=== PATIENT | male | born 1945 | race Caucasian/White ===

== ENCOUNTER → 2017-03-04 | Outpatient (CLI) | payer OTHER ==
--- NOTE | 2017-03-04 15:34 | PCVCIMAG ---
APPROVED REPORT Study performed: 03/04/2017 14:09:44 EXAM: Comprehensive 2D, Doppler, and color-flow Echocardiogram Patient Location: Echo lab Room #: 3Status: routine BSA: 2.32 HR: 67 bpmBP: 190/86 mmHg Rhythm: NSR Other Information Study Quality: Good Risk Factors: Cardiac Risk Factors: HTN, DM Indications Diabetes Atrial Fibrillation Hypertension/HDD 2D Dimensions LVEF(%): 76.34 (>50%) IVSd: 12.16 (7-11mm)LVOT Diam: 26.90 (18-24mm) LVDd: 56.75 mm PWd: 12.00 (7-11mm)Ascending Ao: 38.63 (22-36mm) LVDs: 30.86 (25-40mm) Left Atrium: 50.67 (27-40mm) Aortic Root: 34.76 mm LV Single Plane 4CH: 53.84 % LV Single Plane 2CH: 71.36 %Gonzales's LVEF: 62.60 % Biplane EF: 64.3 % Volumes Left Atrial Volume (Systole) Single Plane 4CH: 87.58 mLSingle Plane 2CH: 92.92 mL Biplane LA Volume: 106.00 mLLA ESV Index: 46.00 mL/m2 Aortic Valve AoV Peak Rod.: 1.60 m/s AO Peak Gr.: 10.20 mmHgLVOT Max P.43 mmHg LVOT Max V: 1.05 m/s COLLINS Vmax: 3.74 cm2 Mitral Valve E/A Ratio: 1.0 MV Decel. Time: 153.81 ms MV E Max Rod.: 0.70 m/s MV A Rod.: 0.71 m/s MV PHT: 44.60 ms IVRT: 83.04 ms TDI E/Lateral E': 11.67E/Medial E': 11.67 Medial E' Rod.: 0.06 m/s Lateral E' Rod.: 0.06 m/s Pulmonary Valve PV Peak Rod.: 1.30 m/sPV Peak Gr.: 6.74 mmHg Pulmonary Vein P Vein S: 0.72 m/sP Vein A: 0.35 m/s P Vein D: 0.44 m/sP Vein A Dur.: 124.6 msec P Vein S/D Ratio: 1.64 Tricuspid Valve TR Peak Rod.: 1.71 m/s TR Peak Gr.: 11.74 mmHg TV Vmax: 0.90 m/sPA Pressure: 19.00 mmHg Left Ventricle Left ventricle is at the upper limits of normal. There is normal LV segmental wall motion. Mild concentric left ventricular hypertrophy. Left ventricular systolic function is normal. The left ventricular ejection fraction is within the normal range. LVEF is 60-65%. Right Ventricle The right ventricle is normal size. The right ventricular systolic function is normal. Atria Left atrium is mildly dilated. The right atrium size is normal. Aortic Valve Aortic valve is trileaflet, mildly sclerotic No aortic regurgitation is present. There is no aortic valvular stenosis. Mitral Valve The mitral valve is normal in structure. There is no mitral valve regurgitation noted. No evidence of mitral valve stenosis. Tricuspid Valve The tricuspid valve is normal in structure. There is no tricuspid valve regurgitation noted. Pulmonic Valve The pulmonary valve is normal in structure. There is no pulmonic valvular regurgitation. Great Vessels The aortic root is normal in size. The ascending aorta is mildly dilated 3.9cm IVC is normal in size and collapses with >50% inspiration Pericardium There is no pericardial effusion. There is no pleural effusion. <Conclusion> Left ventricular systolic function is normal. Mild concentric left ventricular hypertrophy. There is normal LV segmental wall motion. LVEF 60-65%. Left atrium is mildly dilated. Aortic valve is trileaflet, mildly sclerotic. No aortic valvular stenosis or insufficiency. The mitral valve is normal in structure. No mitral valve regurgitation. The ascending aorta is mildly dilated 3.9cm There is no pericardial effusion.
== END | disposition home or self-care (01) ==
LOC: PCVCIMAG 13:58
PROVIDERS: ATTEND Internal Medicine
DX: I48.0 Paroxysmal atrial fibrillation (principal); E78.5 Hyperlipidemia, unspecified; I10 Essential (primary) hypertension; I71.2 Thoracic aortic aneurysm, without rupture; E11.9 Type 2 diabetes mellitus without complications; Z87.891 Personal history of nicotine dependence; Z79.899 Other long term (current) drug therapy; Z79.4 Long term (current) use of insulin
CPT/HCPCS: 80061; 93005; 93306; G0463

== ENCOUNTER → 2017-09-17 | Outpatient (CLI) | payer OTHER | END | disposition home or self-care (01) | LOC: PCVCIMAG 14:05 | DX: I48.2 Chronic atrial fibrillation (principal); E78.5 Hyperlipidemia, unspecified; I10 Essential (primary) hypertension; I71.2 Thoracic aortic aneurysm, without rupture; E11.9 Type 2 diabetes mellitus without complications; Z79.4 Long term (current) use of insulin; Z79.01 Long term (current) use of anticoagulants; Z79.899 Other long term (current) drug therapy | CPT/HCPCS: 93005; 93306; G0463 ==

== ENCOUNTER → 2018-02-02 | Outpatient (CLI) | payer OTHER | END | disposition home or self-care (01) | LOC: PCVCCLINIC 15:49 | PROVIDERS: ATTEND Internal Medicine | DX: I48.2 Chronic atrial fibrillation (principal); R94.31 Abnormal electrocardiogram [ECG] [EKG]; I10 Essential (primary) hypertension; E78.5 Hyperlipidemia, unspecified; I71.2 Thoracic aortic aneurysm, without rupture; E11.9 Type 2 diabetes mellitus without complications; Z87.891 Personal history of nicotine dependence; Z79.4 Long term (current) use of insulin | CPT/HCPCS: 80061; 93005; G0463 ==